=== PATIENT | male | born 1985 | race Caucasian/White ===

== ENCOUNTER 2019-07-25 09:39 | Emergency (ER) | payer SELFPAY ==
[2019-07-25] MEDS ORDERED: KETOROLAC TROMETHAMINE INJ 30 MG/ML VIAL IM ONE (10:24)
[2019-07-25] MEDS ORDERED: MORPHINE SULFATE INJ 10 MG/ML VIAL IM ONE (10:24)
--- NOTE | 2019-07-25 11:03 | RAD ---
: 1985. Technique: Two views of the right ribs and chest. Clinical history: Possible rib fx. Findings: No evidence for rib fracture. No displaced rib fracture. If further imaging is desired recommend CT No destructive lesion. Lungs are clear. No effusion or pneumothorax. Impression: 1. Normal rib x-rays. Electronically signed by: Emeterio Restrepo MD 07/25/2019 11:02 AM CDT
--- NOTE | 2019-07-25 11:04 | RAD ---
PROCEDURE: XR Chest, 1 View CLINICAL INDICATION: The patient is 33 years old and is Male; Poss rib fx MAIN TECHNIQUE: Frontal view of the chest. COMPARISON: No relevant prior studies available. FINDINGS: LUNGS: The lungs are clear and free of focal consolidation. Pulmonary vascularity is normal. PLEURAL SPACE: There is NO pneumothorax. There are no pleural effusions noted. HEART: The heart size is normal. MEDIASTINUM: No mediastinal widening. The mediastinal contour is unremarkable. BONES/JOINTS: No acute rib fracture. No acute abnormality. IMPRESSION: The lungs are clear and free of focal consolidation. Electronically signed by: Surendra Wood MD 07/25/2019 11:03 AM CDT
--- NOTE | 2019-07-25 11:09 | ED.PDOC ---
History of Present Illness - General Chief Complaint: Trauma Stated Complaint: Pt fell yesterday morning and hit R ribs Time Seen by Provider: 07/25/19 10:23 - History of Present Illness Initial Comments: Pt says that he fell down yesterday and hit his R side of the lower chest , having pain and difficulty in breathing Timing/Duration: 24 hours Severity: severe Improving Factors: immobilization Worsening Factors: movement Associated Symptoms: cough, malaise Allergies/Adverse Reactions: Allergies NO KNOWN ALLERGY Allergy (Verified 07/25/19 09:57) Home Medications: Ambulatory Orders Naproxen [Naprosyn] 500 mg PO BID #10 tab 07/25/19 Tramadol HCl 50 mg PO QID #10 tab 07/25/19 Review of Systems - Review of Systems Constitutional: States: no symptoms reported EENTM: States: no symptoms reported Respiratory: States: no symptoms reported Cardiology: States: no symptoms reported Genitourinary: States: no symptoms reported Musculoskeletal: States: see HPI Skin: States: see HPI Neurological: States: no symptoms reported Endocrine: States: no symptoms reported Hematologic/Lymphatic: States: no symptoms reported All other Systems: Reviewed and Negative Past Medical History (General) - Patient Medical History Hx Stroke: No Hx Asthma: Yes Hx of COPD: No Hx Cardiac Disorders: No Hx Hypertension: Yes Hx Diabetes: Yes - Type 1 Hx Gastroesophageal Reflux: Yes Hx Cancer: No Surgical History: no surgical history - Vaccination History Hx Tetanus, Diphtheria Vaccination: No Hx Influenza Vaccination: No - Social History Hx Tobacco Use: Yes Cigarettes Packs Per Day: 1 Hx Alcohol Use: Yes Hx Substance Use: No - Denies Hx Substance Use Treatment: No - Denies Hx Depression: No - Female History Patient is a Female of Child Bearing Age (10 -59 yrs old): No Patient : No Family Medical History - Family History Mother Family History: No Known Living Status: Still Living Physical Exam - Physical Exam General Appearance: Well Developed, Well Groomed, Well Hydrated, Well Nourished Eye Exam: bilateral normal Ears, Nose, Throat: hearing grossly normal Neck: non-tender, full range of motion Respiratory: lungs clear - tenderness over R lower ribs Cardiovascular/Chest: normal peripheral pulses, regular rate, rhythm, no edema Gastrointestinal/Abdominal: non tender, soft Back Exam: normal inspection Extremity: normal range of motion Neurologic: no motor/sensory deficits, alert, normal mood/affect, oriented x 3 Departure - Departure Clinical Impression: Rib pain on right side, Rib injury Disposition: Discharge to Home or Self Care Departure Forms: ED Discharge - Pt. Copy, Patient Portal Self Enrollment Activity: increase activity as tolerated, walking as tolerated Prescriptions: Naproxen [Naprosyn] 500 mg PO BID #10 tab Tramadol HCl 50 mg PO QID #10 tab Home Medications: Ambulatory Orders Naproxen [Naprosyn] 500 mg PO BID #10 tab 07/25/19 Tramadol HCl 50 mg PO QID #10 tab 07/25/19 Additional Instructions: Follow up PCP in 1-2 days
[2019-07-25 11:29] VITALS: BP 149/91; TEMP 96.7; O2SAT 98
== END 2019-07-25 11:23 | disposition home or self-care (01) ==
LOC: ER 09:39
DX: S29.9XXA Unspecified injury of thorax, initial encounter (principal); R07.1 Chest pain on breathing; J45.909 Unspecified asthma, uncomplicated; I10 Essential (primary) hypertension; E10.9 Type 1 diabetes mellitus without complications; K21.9 Gastro-esophageal reflux disease without esophagitis; Z87.891 Personal history of nicotine dependence; Y93.02 Activity, running; W01.190A Fall on same level from slipping, tripping and stumbling with subsequent striking against furniture, initial encounter; Y92.9 Unspecified place or not applicable
CPT/HCPCS: 71045; 71100; J1885; J2270

== ENCOUNTER 2019-08-04 13:32 | Emergency (ER) | payer SELFPAY ==
[2019-08-04 13:43] VITALS: BP 151/112; TEMP 96.4; O2SAT 99
--- NOTE | 2019-08-04 13:58 | ED.PDOC ---
History of Present Illness - General Chief Complaint: Abdominal Pain Time Seen by Provider: 08/04/19 13:40 Information Source: patient, RN notes reviewed, Vital Signs reviewed Exam Limitations: no limitations - History of Present Illness Initial Comments: Fell 1 week prior onto right side. Still having pain to same area. Abdominal Pain Onset Location: flank Pain Radiation: no radiation Quality: mild, sharpness Timing/Duration: 1 week Improving Factors: medication Worsening Factors: other - cough Associated Symptoms: denies symptoms Review of Systems - Review of Systems Constitutional: States: no symptoms reported EENTM: States: no symptoms reported Respiratory: States: see HPI Cardiology: States: no symptoms reported Gastrointestinal/Abdominal: States: no symptoms reported Genitourinary: States: no symptoms reported Musculoskeletal: States: see HPI Skin: States: no symptoms reported Neurological: States: no symptoms reported Past Medical History (General) - Patient Medical History Hx Stroke: No Hx Asthma: Yes Hx of COPD: No Hx Cardiac Disorders: No Hx Hypertension: Yes Hx Diabetes: Yes - Type 1 Hx Gastroesophageal Reflux: Yes Hx Cancer: No Surgical History: no surgical history - Vaccination History Hx Tetanus, Diphtheria Vaccination: No Hx Influenza Vaccination: No - Social History Hx Tobacco Use: Yes Hx Alcohol Use: Yes Hx Substance Use: No - Denies Hx Substance Use Treatment: No - Denies Hx Depression: No - Female History Patient : No Family Medical History - Family History Mother Family History: No Known Living Status: Still Living Physical Exam - Physical Exam General Appearance: Alert, Comfortable Eyes, Ears, Nose, Throat Exam: normal ENT inspection Neck: full range of motion Respiratory: lungs clear, normal breath sounds Cardiovascular/Chest: normal peripheral pulses Gastrointestinal/Abdominal: non tender, soft Back Exam: normal inspection Extremity: normal range of motion 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 Denies radiation of pain, chest pain, or other symptoms. XR ribs unremarkable. Advised to take NSAIDs prn and to return if CP, SOB, fever, or severe pain. Departure - Departure Clinical Impression: Contusion of rib on right side Time of Disposition: 14:42 Disposition: Discharge to Home or Self Care Condition: Fair Departure Forms: ED Discharge - Pt. Copy, Patient Portal Self Enrollment Instructions: DI for Abdominal Pain-Adult Activity: increase activity as tolerated Referrals: Soledad Keys NP [Primary Care Provider] - 1-2 Days Home Medications: Ambulatory Orders Naproxen [Naprosyn] 500 mg PO BID #10 tab 07/25/19 Insulin NPH (Human) (Isophane) [Novolin N] 20 unit SC QAM 08/04/19 Insulin Regular (Human) [Novolin R] See Protocol IJ 08/04/19 Lisinopril 20 mg PO DAILY 08/04/19
--- NOTE | 2019-08-04 14:38 | RAD ---
Procedure: XR RIBS 2 VIEWS UNILATERAL RIGHT Exam Date: 08/04/2019 Ordering Provider: Pranav Hernandez Clinical Indication: Fall onto right side 1 week prior Comparison: 07/25/2019 Findings/impression: No displaced rib fractures. No pneumothorax. Electronically signed by: Darrin Galindo MD 08/04/2019 2:36 PM CDT
== END 2019-08-04 14:54 | disposition home or self-care (01) ==
LOC: SUPCPDRO 13:32 → ER 13:32
DX: S20.211D Contusion of right front wall of thorax, subsequent encounter (principal); J45.909 Unspecified asthma, uncomplicated; I10 Essential (primary) hypertension; E10.9 Type 1 diabetes mellitus without complications; K21.9 Gastro-esophageal reflux disease without esophagitis; W19.XXXD Unspecified fall, subsequent encounter; Z87.891 Personal history of nicotine dependence; Z79.4 Long term (current) use of insulin; Z79.899 Other long term (current) drug therapy; Y92.9 Unspecified place or not applicable

== ENCOUNTER 2019-11-17 17:09 | Emergency (ER) | payer SELFPAY ==
[2019-11-17] MEDS ORDERED: IBUPROFEN 200 MG TAB PO ONE (17:23)
[2019-11-17] MEDS ORDERED: METHOCARBAMOL 750 MG TAB PO ONE (17:23)
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
[2019-11-17 17:29] VITALS: TEMP 98.4; O2SAT 99
[2019-11-17 19:03] VITALS: BP 153/87
== END 2019-11-17 18:40 | disposition home or self-care (01) ==
LOC: ER 17:09
DX: E10.649 Type 1 diabetes mellitus with hypoglycemia without coma (principal); T38.3X5A Adverse effect of insulin and oral hypoglycemic [antidiabetic] drugs, initial encounter; S16.1XXA Strain of muscle, fascia and tendon at neck level, initial encounter; J45.909 Unspecified asthma, uncomplicated; I10 Essential (primary) hypertension; K21.9 Gastro-esophageal reflux disease without esophagitis; Z79.4 Long term (current) use of insulin; Z87.891 Personal history of nicotine dependence; Z79.899 Other long term (current) drug therapy; V49.9XXA Car occupant (driver) (passenger) injured in unspecified traffic accident, initial encounter; Y92.410 Unspecified street and highway as the place of occurrence of the external cause